=== PATIENT | male | born 1945 | race Caucasian/White ===

== ENCOUNTER 2020-01-08 21:30 | Inpatient (IN) | payer OTHER ==
[~2020-01-08] VITALS: Ht 185.4 cm; Wt 113.4 kg
[~2020-01-08 21:30] MED LIST: ATOR10 PO; DILT120 PO; HYDACE10B PO; LISHYD1012; METF500 PO; METO25ER; MIRT15; PREG150 PO; ROSU10TA; Robaxin750 MG PO; VITAMIN D31000 UNI1 PO; WARF5
[2020-01-08 21:58] LABS: BASOPHILS ABSOLUTE AUTO 0.05 K/mm3 (0.00-0.23); BASOPHILS PERCENT AUTO 0 % (0-2); EOSINOPHILS ABSOLUTE AUTO 0.09 K/mm3 (0.00-0.68); EOSINOPHILS PERCENT AUTO 1 % (0-6); Hematocrit 45.7 % (37.0-53.0); Hemoglobin 15.1 g/dL (13.5-17.5); IMMATURE GRAN ABSOLUTE AUTO 0.11 K/mm3 (0.00-0.10); IMMATURE GRAN PERCENT AUTO 1 % (0-1); LYMPHOCYTES ABSOLUTE AUTO 2.12 K/mm3 (0.84-5.20); LYMPHOCYTES PERCENT AUTO 11 % (21-46); MONOCYTES ABSOLUTE AUTO 1.92 K/mm3 (0.16-1.47); MONOCYTES PERCENT AUTO 10 % (4-13); Mean Corpuscular HGB 31.6 pg (26.0-34.0); Mean Corpuscular Volume 96 fL (80-100); NEUTROPHILS ABSOLUTE AUTO 15.28 K/mm3 (1.96-9.15); NEUTROPHILS PERCENT AUTO 78 % (41-73); Platelet Count 247 K/mm3 (150-400); RDW Standard Deviation 42.5 fL (35.1-46.3); Red Blood Cell Count 4.78 M/mm3 (4.30-5.90); White Blood Cell Count 19.57 K/mm3 (4.00-11.30)
[2020-01-08 22:17] LABS: Alanine Aminotransfer (ALT/SGP 68 U/L (12-78); Albumin, Blood 3.7 g/dL (3.4-5.0); Albumin/Globulin Ratio 0.9 (0.8-1.8); Alk Phos 88 U/L (50-136); Anion Gap 9 mmol/L (6-16); Aspartate Aminotrans (AST/SGOT 34 U/L (12-37); Bilirubin, Total 0.8 mg/dL (0.1-1.0); Blood Urea Nitrogen 20 mg/dL (8-24); Bun/Creatinine Ratio 18.2 (12.0-20.0); CO2, Blood 21 mmol/L (21-32); Calcium, Blood 9.5 mg/dL (8.5-10.1); Chloride, Blood 105 mmol/L (98-108); Globulin, Blood 4.3 g/dL (2.2-4.0); Glomerular Filtration Rate >60 (60-); Glucose, Blood 195 mg/dL (70-99); Potassium, Blood 3.9 mmol/L (3.5-5.5); Sodium, Blood 135 mmol/L (136-145)
[2020-01-08 23:58] LABS: Source, Urine Clean Catch
[2020-01-09 00:20] LABS: Appearance, Urine Cloudy (Clear); Bilirubin, Urine Neg (Neg); Blood, Urine 3+ (Neg); Color, Urine Yellow (P-Yellow); Glucose Qualitative, Urine 1+ (Neg); Ketones, Urine Neg (Neg); Leukocyte Esterase, Urine 1+ (Neg); Nitrite, Urine Neg (Neg); Protein, Urine 1+ (Neg); Urobilinogen, Urine NORM (Normal)
[2020-01-09 00:21] LABS: Bacteria Mod /hpf; Red Blood Cells, Urine TNTC /hpf (0-2); Squamous Epithelial Cells Rare /hpf (Few); White Blood Cells, Urine 25-50 /hpf (0-5)
[2020-01-09 05:06] LABS: BASOPHILS ABSOLUTE AUTO 0.04 K/mm3 (0.00-0.23); BASOPHILS PERCENT AUTO 0 % (0-2); EOSINOPHILS ABSOLUTE AUTO 0.01 K/mm3 (0.00-0.68); EOSINOPHILS PERCENT AUTO 0 % (0-6); Hematocrit 42.9 % (37.0-53.0); Hemoglobin 14.1 g/dL (13.5-17.5); IMMATURE GRAN PERCENT AUTO 1 % (0-1); LYMPHOCYTES ABSOLUTE AUTO 1.68 K/mm3 (0.84-5.20); LYMPHOCYTES PERCENT AUTO 10 % (21-46); MONOCYTES ABSOLUTE AUTO 1.34 K/mm3 (0.16-1.47); MONOCYTES PERCENT AUTO 8 % (4-13); Mean Corpuscular HGB 31.7 pg (26.0-34.0); Mean Corpuscular HGB Conc 32.9 g/dL (31.5-36.5); Mean Corpuscular Volume 96 fL (80-100); NEUTROPHILS ABSOLUTE AUTO 13.75 K/mm3 (1.96-9.15); NEUTROPHILS PERCENT AUTO 81 % (41-73); Platelet Count 209 K/mm3 (150-400); RDW Standard Deviation 43.1 fL (35.1-46.3); Red Blood Cell Count 4.45 M/mm3 (4.30-5.90); White Blood Cell Count 16.92 K/mm3 (4.00-11.30)
[2020-01-09] MEDS ORDERED: MIRT30 PO (05:26)
[2020-01-09] MEDS ORDERED: METO50ER PO (05:26)
[2020-01-09] MEDS ORDERED: BASAGLAR K100 UNIT/1 SC (05:29)
[2020-01-09] MEDS ORDERED: TRAM50 PO (05:30)
[2020-01-09 05:33] LABS: Alanine Aminotransfer (ALT/SGP 59 U/L (12-78); Albumin, Blood 3.3 g/dL (3.4-5.0); Albumin/Globulin Ratio 0.8 (0.8-1.8); Alk Phos 79 U/L (50-136); Anion Gap 10 mmol/L (6-16); Aspartate Aminotrans (AST/SGOT 30 U/L (12-37); Bilirubin, Total 0.6 mg/dL (0.1-1.0); Blood Urea Nitrogen 19 mg/dL (8-24); Bun/Creatinine Ratio 20.4 (12.0-20.0); CO2, Blood 21 mmol/L (21-32); Calcium, Blood 8.9 mg/dL (8.5-10.1); Chloride, Blood 107 mmol/L (98-108); Creatinine, Blood 0.93 mg/dL (0.60-1.20); Globulin, Blood 4.1 g/dL (2.2-4.0); Glomerular Filtration Rate >60 (60-); Glucose, Blood 184 mg/dL (70-99); Sodium, Blood 138 mmol/L (136-145); Total Protein, Blood 7.4 g/dL (6.4-8.2)
--- NOTE | 2020-01-09 06:33 | NUR ---
SHIFT SUMMARY RECIEVED REPORT FROM LEON DAVIS @ 6289. ARRIVED TO MEDICAL FLOOR @ 6342. NO ASSISTANCE NEEDED WITH TRANSFER FROM [facility] TO BED. ORIENTED TO ROOM AND CALL SYSTEM. A/O, ABLE TO MAKE NEEDS KNOWN. COOPERATIVE WITH CARE. ANSWERS QUESTIONS APPROPRIATELY. NO C/O PAIN/DISCOMFORT. FEBRILE; MEDICATED PER EMAR, ICE PACKS TO ARMPITS, COOL RAGS TO CHEST AND FOREHEAD, SHEET ONLY. FEVER DOWN SLIGHTLY. IV BOLUS COMPLETED. RUNNING NS @ 100 ML/HR WITHOUT COMPLICATIONS. NO OTHER ACUTE CHANGES NOTED. BED IN LOWEST POSITION; ALARM ON. CALL LIGHT AND BELONGINGS WITHIN REACH. WCTM. REPORT TO OXANA QUINTERO.
--- NOTE | 2020-01-09 18:42 | NUR ---
PT AOX4 AND COOPERATIVE OF CARE. PT HAS BEEN RESTING IN BED AND WILL AMBULATE TO RESTROO. PT DID REPORT NAUSEA X 1 AND WAS TREATED PER EMAR. FEVER HAS BEEN DOWN AND LAST CHECKED WAS 98.8. PT RESTING IN BED AT THIS TIME WILL CONTINUE TO MONITOR.
--- NOTE | 2020-01-09 22:47 | NUR ---
PT HAD TEMP OF 101.2 W/TYLENOL RECIEVED PRN AND BLANKETS STRIPPED. TEMP NOW TRENDING DOWNWARD AGAIN TO 100.2 AT THIS TIME. TRISHA.
--- NOTE | 2020-01-09 22:53 | NUR ---
1.5L NS INFUSED AND PT SL NOW PER RX. TEMP DOWN TO 98.8.
--- NOTE | 2020-01-10 03:00 | NUR ---
TYLENOL RECIEVED AGAIN FOR TEMP 100.3 WHICH HAS NOW TRENDED DOWN TO 99.1.
[2020-01-10] MEDS ORDERED: NORT25 PO (04:46)
[2020-01-10] MEDS ORDERED: ELIQUIS5 M2 PO (04:48)
--- NOTE | 2020-01-10 05:10 | NUR ---
SUMMARY: PT A/OX4, CALLS APPROPRIATELY AND SPECIFIES NEEDS. HE'S SBA OOB AND USED URINAL INDEPENDENTLY. HE'S DENIED PAIN AND NAUSEA BUT DID REPORT FEELING "FEVERISH" AND CHILLED" TWICE THIS EVENING. TYLENOL WAS RECIEVED X2 DOSES FOR T-MAX OF 101.2 AT HS THEN 100.3 THIS AM. TEMP IMPROVED POST MEDICATION ON BOTH ACCOUNTS. IV ABX RECIEVED AND PT WAS SL AFTER 1.5L NS PER RX. HE REMAINS S.TACH AT 90'S-100'S BPM PER TELEMETRY. SPO2 WNL ON RA. NO ACUTE CHANGES, VSS AND AFEBRILE NOW. WCTM AND REPORT TO DAY RN.
--- NOTE | 2020-01-10 06:52 | NUR ---
ALERTED OF POSITIVE BLOOD CULTURES: GRAM POSITIVE COCCI IN CHAINS. PHARMACY CONSULTED AND ADVISED THAT MD MAY WANT TO CHANGE ABX SINCE PT IS ONLY ON ROCEPHIN. PLACED NO NEW ORDERS AT THIS TIME BUT INFORMED RN THAT HE'D LOOK INTO IT AND POSSIBLY CHANGE ABX. WILL ENSURE DAY STAFF ARE AWARE TO FOLLOW UP.
[2020-01-10 08:46] LABS: BASOPHILS ABSOLUTE AUTO 0.03 K/mm3 (0.00-0.23); BASOPHILS PERCENT AUTO 0 % (0-2); EOSINOPHILS ABSOLUTE AUTO 0.01 K/mm3 (0.00-0.68); EOSINOPHILS PERCENT AUTO 0 % (0-6); Hematocrit 38.9 % (37.0-53.0); IMMATURE GRAN ABSOLUTE AUTO 0.09 K/mm3 (0.00-0.10); IMMATURE GRAN PERCENT AUTO 1 % (0-1); LYMPHOCYTES ABSOLUTE AUTO 1.42 K/mm3 (0.84-5.20); LYMPHOCYTES PERCENT AUTO 10 % (21-46); MONOCYTES ABSOLUTE AUTO 1.46 K/mm3 (0.16-1.47); MONOCYTES PERCENT AUTO 10 % (4-13); Mean Corpuscular HGB 32.3 pg (26.0-34.0); Mean Corpuscular HGB Conc 33.4 g/dL (31.5-36.5); Mean Corpuscular Volume 97 fL (80-100); Mean Platelet Volume 10.2 fL (9.1-12.4); NEUTROPHILS ABSOLUTE AUTO 11.29 K/mm3 (1.96-9.15); NEUTROPHILS PERCENT AUTO 79 % (41-73); Platelet Count 188 K/mm3 (150-400); RDW Coefficient Variation 12.2 % (11.7-14.2); RDW Standard Deviation 43.6 fL (35.1-46.3); Red Blood Cell Count 4.03 M/mm3 (4.30-5.90)
[2020-01-10 09:15] LABS: Alanine Aminotransfer (ALT/SGP 49 U/L (12-78); Albumin/Globulin Ratio 0.8 (0.8-1.8); Alk Phos 71 U/L (50-136); Anion Gap 6 mmol/L (6-16); Aspartate Aminotrans (AST/SGOT 23 U/L (12-37); Bilirubin, Total 0.8 mg/dL (0.1-1.0); Blood Urea Nitrogen 16 mg/dL (8-24); Bun/Creatinine Ratio 18.7 (12.0-20.0); CO2, Blood 22 mmol/L (21-32); Calcium, Blood 8.4 mg/dL (8.5-10.1); Chloride, Blood 109 mmol/L (98-108); Creatinine, Blood 0.85 mg/dL (0.60-1.20); Glomerular Filtration Rate >60 (60-); Glucose, Blood 180 mg/dL (70-99); Sodium, Blood 137 mmol/L (136-145)
--- NOTE | 2020-01-10 18:43 | NUR ---
SUMMARY PT IS A/O X4, PLEASANT AFFECT. ANTHONY SAW HIM THIS AM, STATE GAIT STEADY, IND IN ROOM. PT DAUGHTER WAS HERE THIS AM, DR MELISSA IN TO SEE PT & REVIEW DX/TX w PT & HIS DAUGHTER, ANSWER ALL QUESTIONS. STATE WAITING RESULTS OF CULTURES WHICH MAY BE 2-3 DAYS. DX PYELONEPHRITIS, ORDER IV VANCO IN ADDITION TO ROCEPHIN. VSS, HAVE BEEN MONITORING TEMP, LAST 99.3, HE HAD TYLENOL THIS AM. PT HAD LITHOTRIPSY SCHEDULED FOR TODAY IN [place], DAUGHTER WILL ASSIST HIM TO RESCHEDULE AFTER CURRENT ILLNESS RESOLVED.
--- NOTE | 2020-01-11 03:50 | NUR ---
PCU SPEECH CORRECTION CONSULTANT ALERTED THIS RN THAT PT CONVERTED TO AFIB, HR 98 BPM AT 0335. PT HAS KNOWN HX AFIB ON METOPROLOL AND CARDIZEM PO. THIS RN AWOKE PT AND HE DENIED ANY S/S CARDIAC DISTRESS. HE'D BEEN SLEEPING COMFORTABLY W/STABLE VS. I DISCUSSED THE EVENT W/FINANCE ADMINISTRATOR WHO DENIED NEEDING TO CALL MD [facility]LY [facility]. WILL NOTIFY MD W/NEXT CALL OR IF PT BECOMES SYMPTOMATIC.
--- NOTE | 2020-01-11 05:42 | NUR ---
ALERTED OF PT CONVERSION TO AFIB FROM S.TACH W/PAC'S W/KNOWN HX OF AFIB. WHILE ON THE PHONE W/THE ESAU FAY (PCU MONITOR) ALERTED THIS RN THAT HR WAS UP TO 120'S AND WAS STILL AFIB. ORDER RECIEVED FOR LOPRESSOR 5MG IV NOW X1. TRAVELING PASSENGER AGENT PERFORMED VITALS PER RN REQUEST AND PT ADMITTED HE WAS UP TO TOILET AND STRAINING TO VOID. HIS HR CAME DOWN TO 80'S-90'S SPONTANEOUSLY ONCE SETTLED BACK IN BED W/BP STABLE AT 115/75. HE DENIED ANY CARDIAC DISTRESS DURING HR ELEVATION. SITUATION DISCUSSED W/INSTRUMENTAL MUSICIAN, PK AYERS WHO INSTRUCTED THAT RN NOT PLACE ORDER FOR X1 LOPRESSOR D/T PT NO LONGER SEEMING TO NEED IT AND HR IMPROVING SPONTANEOUSLY. WCTM CLOSELY AND ALERT MD IF PT BECOMES SYMPTOMATIC OR SUSTAINS HR ELEVATIONS.
[2020-01-11 05:58] LABS: BASOPHILS ABSOLUTE AUTO 0.04 K/mm3 (0.00-0.23); BASOPHILS PERCENT AUTO 0 % (0-2); EOSINOPHILS ABSOLUTE AUTO 0.17 K/mm3 (0.00-0.68); EOSINOPHILS PERCENT AUTO 2 % (0-6); Hemoglobin 12.6 g/dL (13.5-17.5); IMMATURE GRAN ABSOLUTE AUTO 0.05 K/mm3 (0.00-0.10); IMMATURE GRAN PERCENT AUTO 1 % (0-1); LYMPHOCYTES ABSOLUTE AUTO 2.24 K/mm3 (0.84-5.20); LYMPHOCYTES PERCENT AUTO 24 % (21-46); MONOCYTES ABSOLUTE AUTO 1.04 K/mm3 (0.16-1.47); MONOCYTES PERCENT AUTO 11 % (4-13); Mean Corpuscular HGB 31.7 pg (26.0-34.0); Mean Corpuscular HGB Conc 33.2 g/dL (31.5-36.5); Mean Corpuscular Volume 96 fL (80-100); Mean Platelet Volume 10.1 fL (9.1-12.4); NEUTROPHILS ABSOLUTE AUTO 5.98 K/mm3 (1.96-9.15); NEUTROPHILS PERCENT AUTO 63 % (41-73); Platelet Count 188 K/mm3 (150-400); RDW Coefficient Variation 11.9 % (11.7-14.2); RDW Standard Deviation 42.2 fL (35.1-46.3); Red Blood Cell Count 3.97 M/mm3 (4.30-5.90); White Blood Cell Count 9.52 K/mm3 (4.00-11.30)
[2020-01-11 06:14] LABS: Albumin, Blood 2.7 g/dL (3.4-5.0); Anion Gap 6 mmol/L (6-16); Blood Urea Nitrogen 17 mg/dL (8-24); Bun/Creatinine Ratio 20.1 (12.0-20.0); CO2, Blood 23 mmol/L (21-32); Calcium, Blood 8.1 mg/dL (8.5-10.1); Chloride, Blood 109 mmol/L (98-108); Creatinine, Blood 0.85 mg/dL (0.60-1.20); Glomerular Filtration Rate >60 (60-); Glucose, Blood 129 mg/dL (70-99); Phosphorus, Blood 1.8 mg/dL (2.5-4.9); Potassium, Blood 3.7 mmol/L (3.5-5.5); Sodium, Blood 138 mmol/L (136-145)
--- NOTE | 2020-01-11 07:40 | NUR ---
SUMMARY: A/OX4, CALLS APPROPRIATELY AND INDEPENDENT IN ROOM. HE'S DENIED PAIN, NAUSEA AND ALL OTHER COMPLAINTS THIS SHIFT AND HAS NOT REQUESTED PYRIDIUM PRN. ROCEPHIN AND VANCO BEING RECIEVED IV FOR PYELONEPHRITIS THEN SL. HE BEGAN SHIFT IN NSR W/PAC'S AT 90'S-100'S BPM BUT CONVERTED TO AFIB THIS SHIFT AT 0335. HE HAS KNOWN HX AFIB AND IS ON METOPROLOL AND CARDIZEM AT BASELINE. PT REMAINED ASYMTOMATIC OF CARDIAC DISTRESS AND AWOKE TO DENY CP, DIZZYNESS, NAUSEA AND SOB DESPITE CONVERSION. HIS HR AVERAGED 80'S-90'S BUT TRENDED UP TO 120'S PER PCU HERBOLOGIST WHILE DISCUSSING AFIB W/MD. HE ADMITTED TO AMBULATING IN ROOM AT THAT TIME W/SOME STRAINING TO VOID. WAS AWARE, SEE PREVIOUS NOTE FOR DETAILS BUT HR RESOLVED SPONTANEOUSLY UPON SETTLING IN BED AND NO STAT MEDS WERE REQUIRED. INCREASED PT'S LOVENOX SQ DOSE THIS AM AND 1ST DOSE WAS RECIEVED. PT AWARE TO NOTIFY STAFF IF HE BECOMES SYMPTOMATIC OR EXPERIENCES ANY CHANGES. VSS T/O NOCTE AND REMAINED SO DURING COVERSION TO AFIB. REPORT PROVIDED TO DAY RN.
--- NOTE | 2020-01-11 13:29 | NUR ---
PT IN A FIB, RESTING HR HAS GONE FROM 80-90 THIS MORNING TO 110'S AT REST NOW, INCREASES TO 130-162 WITH ACTIVITY. DENIES CHEST DISCOMFORT AND DIZZINESS, ENDORSES SOME VIRAMONTES BUT RECOVERS QUICKLY AFTER RESTING. SPOKE TO DR. Claude STOUT BY PHONE TO REPORT THIS, NEW ORDERS PENDING.
--- NOTE | 2020-01-11 19:34 | NUR ---
SHIFT SUMMARY: CONVERTED TO AFIB DURING NOC SHIFT, HR AT REST 90-100 THIS MORNING. DAY PROGRESSED HR CLIMBED TO 110-120'S RESTING AND HIGH 162 WITH ACTIVITY. ADDITIONAL DOSE OF METOPROLOL BROUGHT HR DOWN TO 80-90'S AT REST AND 100'S WITH ACTIVITY. PT STATED HE FEELS THAT "SWEATS" ARE RESOLVING. HAD BM TODAY, USING URNAL/BR. INDEPEDENT IN ROOM. AWAITING SPECIATION OF BLOOD CULTURE ORGANISM.
--- NOTE | 2020-01-12 06:11 | NUR ---
SUMMARY PT CONTINUES WITH AFIB. NO C/O CP. HEART RATE BUMPING WITH ACTIVITY. EXPLOSIVE OPERATOR BOMB REPORTS HIGH 150-170 ALTHOUGH NOT SUSTAINING.REPORTED AVERAGE RATE SINCE 329 HAS BEEN 110. CALL OUT TO DR MENDOZA.WAITING RETURN CALL.CURRENTLY PT RESTING IN BED WATCHING TV WITHOUT COMPLAINT.
--- NOTE | 2020-01-12 19:31 | NUR ---
SHIFT SUMMARY: NO ACUTE CHANGES TO REPORT THIS SHIFT. PT A&O; CALM AND COOPERATIVE WITH CARE. NO C/O PAIN THIS SHIFT. TELE IN PLACE; SR c PACs DURING MORNING ASSESSMENT. IV ABX CONTINUING. EXPECTED D/C HOME TOMORROW 01/12. REPORT GIVEN TO ONCOMING RN.
[2020-01-13 05:41] LABS: BASOPHILS ABSOLUTE AUTO 0.03 K/mm3 (0.00-0.23); BASOPHILS PERCENT AUTO 0 % (0-2); EOSINOPHILS ABSOLUTE AUTO 0.19 K/mm3 (0.00-0.68); EOSINOPHILS PERCENT AUTO 2 % (0-6); Hematocrit 36.2 % (37.0-53.0); IMMATURE GRAN ABSOLUTE AUTO 0.09 K/mm3 (0.00-0.10); IMMATURE GRAN PERCENT AUTO 1 % (0-1); LYMPHOCYTES ABSOLUTE AUTO 1.84 K/mm3 (0.84-5.20); LYMPHOCYTES PERCENT AUTO 22 % (21-46); MONOCYTES ABSOLUTE AUTO 0.89 K/mm3 (0.16-1.47); MONOCYTES PERCENT AUTO 10 % (4-13); Mean Corpuscular HGB 31.7 pg (26.0-34.0); Mean Corpuscular HGB Conc 33.1 g/dL (31.5-36.5); Mean Corpuscular Volume 96 fL (80-100); Mean Platelet Volume 9.9 fL (9.1-12.4); NEUTROPHILS ABSOLUTE AUTO 5.48 K/mm3 (1.96-9.15); NEUTROPHILS PERCENT AUTO 64 % (41-73); Platelet Count 243 K/mm3 (150-400); RDW Coefficient Variation 11.9 % (11.7-14.2); RDW Standard Deviation 41.8 fL (35.1-46.3); Red Blood Cell Count 3.78 M/mm3 (4.30-5.90); White Blood Cell Count 8.52 K/mm3 (4.00-11.30)
--- NOTE | 2020-01-13 05:51 | NUR ---
CARAMEL CANDY MAKER HELPER SUMMARY NO ACUTE CHANGES THIS SHIFT. PT AAOX4 AND INDEPENDENT TO BATHROOM. CONTINUES ON IV AMPICILLIN. DENIES PAIN, N/V. NEW IV PLACED DUE TO PREVIOUS IV LEAKING. VSS, WILL CONTINUE TO MONITOR.
[2020-01-13 06:01] LABS: Anion Gap 5 mmol/L (6-16); Blood Urea Nitrogen 15 mg/dL (8-24); Bun/Creatinine Ratio 16.9 (12.0-20.0); CO2, Blood 24 mmol/L (21-32); Chloride, Blood 110 mmol/L (98-108); Creatinine, Blood 0.89 mg/dL (0.60-1.20); Glomerular Filtration Rate >60 (60-); Glucose, Blood 145 mg/dL (70-99); Potassium, Blood 3.7 mmol/L (3.5-5.5); Sodium, Blood 139 mmol/L (136-145)
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
[2020-01-13] MEDS ORDERED: ACET325 PO (11:59)
[2020-01-13] MEDS ORDERED: AMPI500 PO (12:00)
[2020-01-13] MEDS ORDERED: HIGH POTENCY P1 EAC1 PO (12:01)
[2020-01-13] MEDS ORDERED: DOCU100 PO (12:01)
[2020-01-13] MEDS ORDERED: ONDA4ODT MM (12:02)
[2020-01-13] MEDS ORDERED: Pyridium100 MG PO (12:03)
--- NOTE | 2020-01-13 12:58 | NUR ---
PATIENT DISCHARGE: PATIENT DISCHARGED TO HOME THIS SHIFT. MEDICATION RECONCILIATION COMPLETED; MED LIST FAXED TO [facility]. DISCHARGE EDUCATION COMPLETED WITH PATIENT. PATIENT TRANSPORTED TO EXIT BY [facility] STAFF WITH WHEELCHAIR AT 1255. PATIENT DEPARTED [facility] VIA PRIVATE AUTO.
== END 2020-01-13 12:54 | disposition home or self-care (01) | DRG 698 ==
LOC: ER 21:30 → MEDS 01-09 03:54 → ENPENDDIS 01-13 10:00 → MEDS 01-13 12:54
PROVIDERS: Emergency Medicine; Family Medicine; Internal Medicine; ADMIT Internal Medicine
DX: T83.598A Infection and inflammatory reaction due to other prosthetic device, implant and graft in urinary system, initial encounter (principal); A41.89 Other specified sepsis; R65.20 Severe sepsis without septic shock; N12 Tubulo-interstitial nephritis, not specified as acute or chronic; Z79.01 Long term (current) use of anticoagulants; Z87.891 Personal history of nicotine dependence; F43.10 Post-traumatic stress disorder, unspecified; E78.5 Hyperlipidemia, unspecified; E11.9 Type 2 diabetes mellitus without complications; I10 Essential (primary) hypertension; Z79.4 Long term (current) use of insulin; R26.9 Unspecified abnormalities of gait and mobility; E66.01 Morbid (severe) obesity due to excess calories; Z68.33 Body mass index [BMI] 33.0-33.9, adult; I48.0 Paroxysmal atrial fibrillation
CPT/HCPCS: 36415; 74176; 80048; 80053; 80069; 81001; 82947; 83605; 85025; 87040; 87077; 87086; 87186; 93005; 93010; 96361; 96365; 97161; 99285; A9270; A9270-GY; J0290; J0696; J1650; J2405; J3370; J7030; J7050